=== PATIENT | male | born 1990 | race Caucasian/White ===

== ENCOUNTER 2022-01-06 03:53 | Emergency (ER) | payer SELFPAY ==
[~2022-01-06] VITALS: Ht 182.9 cm; Wt 90.9 kg
[2022-01-06 03:54] VITALS: TEMP 97.9
[2022-01-06] MEDS ORDERED: TUSS PO ×2 (05:23→18:52)
[2022-01-06 06:00] VITALS: BP 109/60; PULSE 68
== END 2022-01-06 06:15 | disposition home or self-care (01) ==
LOC: COL.ER 03:53
DX: U07.1 COVID-19 (principal); F17.200 Nicotine dependence, unspecified, uncomplicated